=== PATIENT | female | born 1975 | race Caucasian/White ===

== ENCOUNTER → 2016-05-18 | Outpatient (CLI) | payer OTHER ==
[~2016-05-18] MED LIST: AC500T PO; ACDPT; BIOT10TA2 PO; DICY10CA12 PO; DOXY-13 PO; GABA300C PO; GBPN600T PO; HYDR-34 PO; HYDR-3583 PO; IBUP-15 PO; IBUP200T48 PO; IRON PO; LNZ600T PO; MINO50CA2 PO; NORE0.35 PO; SULF1TAB38 PO; TRAM50TA2 PO; TRM50T PO; VARE1TAB19 PO; [UNRECOGNIZED DRUG - OTHER] PO
--- OUTSIDE RECORDS SUMMARY | 2016-05-18 07:15 | XMS REPORT ---
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
--- NOTE | 2016-05-18 18:51 | Diagnostic Imaging Report ---
EXAMINATION: Bilateral breast ultrasound. INDICATION: Bilateral breast lumps. FINDINGS: In the left breast, 4 cm from the nipple, there is a nonspecific hypoechoic lesion with an oval shape, measuring 6 x 3 x 5 mm and does not have internal vasculature seen with color Doppler. Etiology is uncertain but the features are nonaggressive and likely of benign etiology. The rest of the four quadrants and retroareolar region demonstrate no significant abnormality. In the right breast at 6:00 zone there is a hypoechoic serpentine area likely related to a dilated duct with internal debris or proteinaceous material giving the complicated appearance. No definite suspicious mass, otherwise, in the four-quadrant retroareolar region. IMPRESSION: Likely benign lesions in the left breast at the 10 o'clock zone and in the right breast at the 6 o'clock zone. Six month followup study to document stability or resolution is recommended. ACR BI-RADS Category 3: Probably benign findings. Result letter will be mailed to the patient. Note: At least 10% of breast cancer is not imaged by mammography. Dictated by: Dictated on workstation # [id number]
--- NOTE | 2016-05-18 19:07 | Diagnostic Imaging Report ---
EXAMINATION: Bilateral breast digital diagnostic mammogram with CAD. The current study was also evaluated with a Computer Aided Detection (CAD) system. INDICATION: Palpable lumps in both breasts. COMPARISON: 12/13/2005. FINDINGS: The breasts are composed of heterogeneously dense parenchyma which may decrease mammographic sensitivity. There is an area of architectural distortion seen in the central slightly lateral aspect of the left breast which is stable from the 2006 exam and is therefore likely related to scarring. There is an asymmetry in the medial aspect of the left breast which appears less prominent in the exaggerated lateral view. There is no definitive developing mass, architectural distortion or suspicious cluster of calcification when compared to the previous study. IMPRESSION: Heterogeneously dense parenchyma with pattern largely comparable to 2006 exam. Asymmetry in the medial aspect of the left breast is likely related to summation artifact. Ultrasound evaluation pending. ACR BI-RADS Category 0: Incomplete. (Needs additional imaging evaluation). Result letter will be mailed to the patient. Note: At least 10% of breast cancer is not imaged by mammography. Dictated by: Dictated on workstation # [id number]
== END ==
LOC: RAD 07:12
PROVIDERS: ATTEND Nurse Practitioner Family
DX: N63 Unspecified lump in breast (principal)
CPT/HCPCS: 77066

== ENCOUNTER 2019-06-09 05:51 | Outpatient (CLI) | payer OTHER ==
[~2019-06-09] VITALS: Ht 170.2 cm; Wt 84.1 kg
[2019-06-09] MEDS ORDERED: IBUP-2473 PO (14:01)
[2019-06-09] MEDS ORDERED: AMIT25TA9 PO (14:01)
[2019-06-09] MEDS ORDERED: GBPN600T PO (14:01)
== END 2019-06-09 14:33 | disposition home or self-care (01) ==
LOC: PREOP 05:51
PROVIDERS: ATTEND Podiatrist Foot & Ankle Surgery
DX: Z01.818 Encounter for other preprocedural examination (principal)

== ENCOUNTER 2019-06-12 11:19 | Day surgery (SDC) | payer OTHER ==
[~2019-06-12] VITALS: Ht 170 cm; Wt 84.1 kg
[2019-06-12] VITALS (8 sets, daily range): BP systolic 85–118; BP diastolic 59–80
[~2019-06-12 11:19] MED LIST changes: +AMIT25TA9 PO; +IBUP-2473 PO
[2019-06-12] MEDS ORDERED: DEXAMETHASONE 10 MG/ML (DECADRON) 1 ML VIAL ONE ×2 (11:53→12:34)
[2019-06-12] MEDS ORDERED: BUP/EPI 0.5% 1:200,000 (SENSORCAINE) 30 ML VIAL ONE (11:53)
[2019-06-12] MEDS ORDERED: LACTATED RINGERS 1,000 ML IV PRN (11:59)
[2019-06-12] MEDS ORDERED: ceFAZolin INJECTION 1,000 MG in WATER (STERILE) FOR INJECTION 10 ML IV ONE (12:00)
[2019-06-12] MEDS ORDERED: WATER (STERILE) FOR INJECTION 10 ML ONE (12:33)
[2019-06-12] MEDS ORDERED: ceFAZolin INJECTION 1,000 MG ONE (12:33)
[2019-06-12] MEDS ORDERED: ONDANSETRON 4 MG/2 ML (SDV) Z0FRAN ONE (12:34)
[2019-06-12] MEDS ORDERED: SEVOFLURANE (ULTANE) 15 ML INHAL SOLN ONE (12:34)
[2019-06-12] MEDS ORDERED: LIDOCAINE PF 2% 5 ML (XYLOCAINE) VIAL ONE (12:34)
[2019-06-12] MEDS ORDERED: MIDAZOLAM 2 MG/2 ML (VERSED) VIAL ONE (12:34)
[2019-06-12] MEDS ORDERED: proPOfol 200 MG/20 ML (DIPRIVAN) VIAL IV ONE (12:34)
[2019-06-12] MEDS ORDERED: fentaNYL INJECTION 100 MCG/2 ML AMP ONE (12:34)
--- NOTE | 2019-06-12 12:53 | Progress Note-Pre Operative ---
Pre-Operative Progress Note H&P Reviewed The H&P was reviewed, patient examined and no changes noted. Date Seen by Provider: Jun 12, 2019 Time Seen by Provider: 12:47 Date H&P Reviewed: Jun 12, 2019 Time H&P Reviewed: 12:47 Pre-Operative Diagnosis: Plantar Fasciitis right ADDIE DIXON DPGina Jun 12, 2019 12:47
[2019-06-12] MEDS ORDERED: LACTATED RINGERS 1,000 ML IV SCH (13:37)
--- NOTE | 2019-06-12 13:37 | Progress Note-Post Operative ---
Post-Operative Progess Note Surgeon (s)/Stabber (s) Surgeon ADDIE DIXON DPM Stabber: none Pre-Operative Diagnosis Plantar Fasciitis right Post-Operative Diagnosis Same Procedure & Operative Findings Date of Procedure 06/12/19 Procedure Performed/Findings Endoscopic Plantar Fascial release, right Anesthesia Type General, LMA Estimated Blood Loss Estimated blood loss (mL): Minimal Specimens/Packing Specimens Removed None ADDIE DIXON DPM Jun 12, 2019 13:37
[2019-06-12] MEDS ORDERED: HYDROcodone/APAP 5 MG/325 MG (LORTAB) TAB PO PRN (13:45)
[2019-06-12] MEDS ORDERED: morphine INJ 10 MG/ML 1ML (SYR OR VIAL) IVP ONE (13:45)
[2019-06-12] MEDS ORDERED: ONDANSETRON 4 MG/2 ML (SDV) Z0FRAN IVP PRN (13:45)
[2019-06-12] MEDS ORDERED: HYDR-4226 PO (13:46)
--- NOTE | 2019-06-12 13:54 | Anesthesia-General Post-Op ---
General Patient Condition Mental Status/LOC: Same as Preop Cardiovascular: Satisfactory Nausea/Vomiting: Absent Respiratory: Satisfactory Pain: Controlled Complications: Absent Post Op Complications Complications None Follow Up Care/Instructions Patient Instructions None needed. Anesthesia/Patient Condition Patient Condition Patient is doing well, no complaints, stable vital signs, no apparent adverse anesthesia problems. RULA REY DO Jun 12, 2019 13:54
--- NOTE | 2019-06-12 15:15 | NUR ---
PT ET REPORT THEY HAVE A HARD SHOE AND CRUTCHES IN THE CAR, AND REPORT THEY UNDERSTAND [employer]IAL WEIGHT BEARING ON CRUTCHES, WEARING THE HARD SHOE ON THE RIGHT FOOT.
--- NOTE | 2019-06-12 22:14 | OPERATIVE REPORT ---
DATE OF SERVICE: 06/12/2019 SURGEON: Alexandra Dixon DPM. PREOPERATIVE DIAGNOSIS: Plantar fasciitis, right. POSTOPERATIVE DIAGNOSIS: Plantar fasciitis, right. PROCEDURE: Endoscopic plantar fascial release, right foot. WOUND CLASS: Clean. ANESTHESIA: General. HEMOSTASIS: Pneumatic thigh tourniquet at 250 mmHg. INDICATIONS: This is a 43-year-old female presents complaining of a chronic heel pain on the right lower extremity. Conservative therapy is met with unsatisfactory results and the patient is agreeable to surgical intervention after risks and complications were discussed at length. No guarantees were extended to the patient and she is willing to proceed. DESCRIPTION OF PROCEDURE: The patient was brought back to the operating table, placed in a secure supine position. Appropriate timeout was performed. A general anesthetic was then induced. Pneumatic thigh tourniquet was placed on the right lower extremity over several layers of padding. The right foot was then prepped and draped in normal sterile manner. The right foot was then elevated and allowed to exsanguinate after which the tourniquet was inflated to 250 mmHg. Attention was then directed to the medial aspect of the right heel where a 0.5 cm vertical incision was created at the juncture of the dorsal and plantar skin, anterior to the calcaneal tuberosity area. This area was marked in conjunction with preoperative measurements. The incision was deepened bluntly to the inferior aspect of the plantar fascia where a probe was introduced into the inferior aspect of the plantar fascia. An obturator and cannula were introduced into the medial skin incision along the inferior aspect of the plantar fascia and tenting the lateral skin where a second vertical incision of 0.5 cm was created. This allowed the obturator and cannula to pass through the lateral aspect of the calcaneus area. The obturator was withdrawn and the cannula held in place where a 3 mm camera was introduced into the lateral portal visualizing the inferior aspect of the plantar fascia. Under direct visualization, the medial third of the plantar fascia was released utilizing a hook and a triangular blade. Percutaneous palpation noted good reduction of the tension to the medial band of the plantar fascia. No other abnormalities were identified at this time. The instrumentation and camera were withdrawn from the foot. Prior to withdraw the cannula, normal saline was utilized for irrigation. The wound was flushed superficially with normal saline after the obturator and cannula were withdrawn and skin closure was performed with 4-0 Prolene in a horizontal mattress type stitch to the medial and lateral skin incisions. Postoperative injection consisted of 10 mL of 0.5% Marcaine plain injected in a local infusion to the surgical site followed by 10 mg of dexamethasone. Postoperative dressing consisted of Betadine soaked Adaptic, sterile 4 x 4, sterile Kerlix, all secured with a Coban wrap. The patient tolerated the anesthesia and procedure well, and was transported from the operating room to the recovery area with vital signs stable and vascular status intact to all digits of the right foot. She was given a prescription for hydrocodone postoperatively. She is to be nonweightbearing for the first 24 hours, then partial weightbearing to tolerance after that, we will see her in my office for followup in 10 days' period of time. Job ID: [id number] DocumentID: [id number] Dictated Date: 06/12/2019 13:46:07 Transport Medic Date: 06/12/2019 22:14:06 Dictated By: ALEXANDRA DIXON DPM
== END 2019-06-12 15:15 | disposition home or self-care (01) ==
LOC: SDC 11:19
PROVIDERS: ATTEND Podiatrist Foot & Ankle Surgery
DX: M72.2 Plantar fascial fibromatosis (principal); G43.909 Migraine, unspecified, not intractable, without status migrainosus; E16.2 Hypoglycemia, unspecified; F17.299 Nicotine dependence, other tobacco product, with unspecified nicotine-induced disorders; Z90.89 Acquired absence of other organs; Z98.51 Tubal ligation status; Z90.2 Acquired absence of lung [part of]; Z91.040 Latex allergy status; Z88.8 Allergy status to other drugs, medicaments and biological substances; Z79.899 Other long term (current) drug therapy; Z80.41 Family history of malignant neoplasm of ovary; Z80.51 Family history of malignant neoplasm of kidney
CPT/HCPCS: 84703; 87081

== ENCOUNTER → 2021-01-06 | Outpatient (CLI) | payer OTHER ==
[~2021-01-06] MED LIST changes: +HYDR-4226 PO
--- NOTE | 2021-01-06 13:58 | Diagnostic Imaging Report ---
PROCEDURE: CT maxillofacial without contrast. TECHNIQUE: Multiple contiguous axial images were obtained through the facial bones without the use of intravenous contrast. Auto Exposure Controls were utilized during the CT exam to meet ALARA standards for radiation dose reduction. INDICATION: Fall. Swelling and tenderness above the left eye. COMPARISON: CT head 11/25/2014. FINDINGS: Small scalp contusion overlying the left frontal bone. Mildly impacted left nasal bone fracture is age indeterminate. No other maxillofacial fractures. The paranasal sinuses are clear. The orbits are unremarkable. Normal alignment of the temporomandibular joints. IMPRESSION: 1. Small scalp contusion overlying the left frontal bone. 2. Mildly impacted left nasal bone fracture is age indeterminate. No other fractures. Dictated by: Dictated on workstation # [id number]
== END ==
LOC: RAD 13:16
PROVIDERS: ATTEND Nurse Practitioner Family
DX: S02.2XXA Fracture of nasal bones, initial encounter for closed fracture (principal); S09.93XA Unspecified injury of face, initial encounter; W19.XXXA Unspecified fall, initial encounter
CPT/HCPCS: 70486